=== PATIENT | male | born 1945 | race Caucasian/White ===

== ENCOUNTER 2017-11-04 01:16 | Emergency (ER) | payer MEDICARE ==
[2017-11-04 01:40] VITALS: BMI 24.9
[2017-11-04 01:42] VITALS: PULSE 63; RESP 16; TEMP 98.7; O2SAT 95
[2017-11-04] MEDS ORDERED: Sodium Chloride 0.9% 1,000 ML IV STA (02:34)
--- NOTE | 2017-11-04 03:44 | ED PDOC ---
Syncope/Near Syncope/Dizziness Time Seen by Provider: 11/04/17 02:10 Chief Complaint (Nursing): Dizziness/Lightheaded Chief Complaint (Provider): Dizziness/Lightheaded History Per: Patient History/Exam Limitations: no limitations Onset/Duration Of Symptoms: Days (x 4) Current Symptoms Are (Timing): Still Present Fall Associated With With Symptoms: No Additional Complaint(s): 72 year old male with a history of asthma presents to the ED with dizziness for the last 4 days. Patient describes it as a sense of generalized warmth that is affecting negatively affected his ability to sleep every night. He reports that he is very frustrated because he is unable to sleep. Patient states he is unaware of any underlying anxiety in his life and denies a history of insomnia. PMD none provided Past Medical History Reviewed: Historical Data Vital Signs: Last Vital Signs Temp 98.7 F 11/04/17 01:40 Pulse 63 11/04/17 01:40 Resp 16 11/04/17 01:40 BP 151/72 H 11/04/17 01:40 Pulse Ox 95 11/04/17 01:40 - Medical History PMH: Asthma, Bronchitis Denies: Arthritis, Atrial Fibrillation, CHF, Diabetes, HTN, Hypercholesterolemia, Seizures - Surgical History Surgical History: Hernia Repair Denies: CABG, Pacemaker - Family History Family History: States: Unknown Family Hx Denies: CAD - Immunization History Hx Tetanus Toxoid Vaccination: Yes Hx Influenza Vaccination: No Hx Pneumococcal Vaccination: No - Home Medications Home Medications: Ambulatory Orders Medication Instructions Recorded Albuterol HFA [Ventolin HFA 90 1 puff IH Q4 #1 inhaler 11/07/15 mcg/actuation (8 g)] Methylprednisolone [Medrol Dose 4 mg PO DAILY #21 mg 11/23/15 Pack (21 tabs)] hydrOXYzine Pamoate [Vistaril] 25 mg PO HS PRN #7 cap 11/04/17 - Allergies Allergies/Adverse Reactions: Allergies Allergy/AdvReac Type Severity Reaction Status Date / Time No Known Allergies Allergy Verified 11/04/17 01:40 Review of Systems ROS Statement: Except As Marked, All Systems Reviewed And Found Negative Neurological: Positive for: Dizziness Physical Exam - Reviewed Nursing Documentation Reviewed: Yes Vital Signs Reviewed: Yes - Physical Exam Appears: Positive for: Well, Non-toxic, No Acute Distress Head Exam: Positive for: ATRAUMATIC, NORMAL INSPECTION, NORMOCEPHALIC Skin: Positive for: Normal Color, Warm, DRY Eye Exam: Positive for: EOMI, Normal appearance, PERRL Neck: Positive for: Normal, Painless ROM. Negative for: Supple Cardiovascular/Chest: Positive for: Regular Rate, Rhythm Respiratory: Positive for: Normal Breath Sounds. Negative for: Respiratory Distress Gastrointestinal/Abdominal: Positive for: Normal Exam, Soft Extremity: Positive for: Normal ROM. Negative for: Deformity Neurologic/Psych: Positive for: Alert, Oriented. Negative for: Motor/Sensory Deficits - Laboratory Results Result Diagrams: 11/04/17 04:22 11/04/17 04:22 - ECG O2 Sat by Pulse Oximetry: 95 Medical Decision Making Medical Decision Making: Time: 02:33 Impression: Initial Plan --EKG --CMP --U dip --CBC --NS IV --UA Time: 05:00 --Labs reviewed and reveal no clinically significant abnormalities. Patient is stable for discharge home. Patient provided limited supply of Vistaril and encouraged to f/u with PCP. Return precautions provided ---- Scribe Attestation: Documented by Fabiana Henry, acting as a scribe for Cody Canales MD Provider Scribe Attestation: All medical record entries made by the Scribe were at my direction and personally dictated by me. I have reviewed the chart and agree that the record accurately reflects my personal performance of the history, physical exam, medical decision making, and the department course for this patient. I have also personally directed, reviewed, and agree with the discharge instructions and disposition. Disposition - Clinical Impression Clinical Impression: Insomnia - Patient ED Disposition Is Patient to be Admitted: No - Disposition Disposition: Routine/Home Disposition Time: 05:02 Condition: STABLE Prescriptions: hydrOXYzine Pamoate [Vistaril] 25 mg PO HS PRN #7 cap PRN Reason: for insomnia Instructions: Insomnia Forms: [employer]ani (Armenian) Print Language: FAROESE
[2017-11-04 04:30] LABS: BASO # 0.1 K/uL (0.0-0.2); EOS # 0.2 K/uL (0.0-0.7); EOS % 3.5 % (0.0-4.0); HEMOGLOBIN 13.7 g/dL (12.0-18.0); LYMPH # 1.9 K/uL (1.0-4.3); LYMPH % 30.8 % (20.0-40.0); MEAN CELL VOLUME 96.6 fl (80.0-94.0); MEAN CORPUSCULAR HEMOGLOBIN 32.7 pg (27.0-31.0); MEAN CORPUSCULAR HGB CONC 33.8 g/dL (33.0-37.0); MEAN PLATELET VOLUME 8.8 fl (7.2-11.7); MONO # 0.6 K/uL (0.0-0.8); MONO % 9.4 % (0.0-10.0); NEUT # 3.4 K/uL (1.8-7.0); NEUT % 55.3 % (50.0-75.0); NRBC % 0.2 % (0.0-0.0); RBC 4.2 Mil/uL (4.40-5.90); RED CELL DISTRIBUTION WIDTH 13.9 % (11.5-14.5); WHITE BLOOD COUNT 6.1 K/uL (4.8-10.8)
[2017-11-04 04:34] LABS: ALB/GLOB RATIO 1.5 (1.0-2.1); ALBUMIN 4.4 g/dL (3.5-5.0); ALT/SGPT 22 U/L (21-72); AST/SGOT 21 U/L (17-59); BLOOD UREA NITROGEN 18 mg/dl (9-20); CALCIUM 9.5 mg/dL (8.4-10.2); GFR AFRICAN-AMERICAN > 60; GFR NON-AFRICAN AMERICAN > 60
[2017-11-04 06:03] VITALS: BP 147/69
--- NOTE | 2017-11-06 13:52 | CARD ---
APPROVED REPORT Date of service: 11/04/2017 EKG Measurement Heart [id number] <Conclusion> Sinus bradycardia Incomplete right bundle branch block Left anterior fascicular block Septal infarct, age undetermined Abnormal ECG
== END 2017-11-04 04:59 | disposition home or self-care (01) ==
LOC: H.ER 01:16
DX: G47.00 Insomnia, unspecified (principal)
CPT/HCPCS: 80053; 82948; 85025; 93005; 99285; J7030

== ENCOUNTER 2017-11-13 01:08 | Emergency (ER) | payer MEDICARE ==
[2017-11-13 01:08] VITALS: BMI 24.9
[2017-11-13] MEDS ORDERED: Albuterol-Ipratrop 3 mg / 0.5 (3 ml) UD IH STA (02:02)
[2017-11-13] MEDS ORDERED: Albuterol-Ipratrop 3 mg / 0.5 (3 ml) UD ONE (02:06)
--- NOTE | 2017-11-13 02:30 | ED PDOC ---
HPI: Hypertension/Hypotension Time Seen by Provider: 11/13/17 01:22 Chief Complaint (Nursing): High Blood Pressure Chief Complaint (Provider): High Blood Pressure History Per: Patient History/Exam Limitations: no limitations Onset/Duration Of Symptoms: Hrs Current Symptoms Are (Timing): Still Present Additional Complaint(s): 72 y/o male presents to the ED complaining of high blood pressure. Patient states blood pressure has been fluctuating for the past for three days and would like to be evaluated. Patient has a PMHx of asthma and uses an inhaler for relief as well as having pneumonia in the past. Otherwise: (+) cough, (-) fever, (-) chest pain, (-) shortness of breath, (-) dizziness, (-) headache, (- ) diaphoresis, (-) N/V, (-) abdominal pain, (-) palpitations, (-) other complaints. Past Medical History Reviewed: Historical Data, Nursing Documentation, Vital Signs Vital Signs: Last Vital Signs Temp 98 F 11/13/17 01:17 Pulse 60 11/13/17 01:17 Resp 16 11/13/17 01:17 BP 164/87 H 11/13/17 01:17 Pulse Ox 96 11/13/17 01:17 - Medical History PMH: Asthma, Bronchitis Denies: Arthritis, Atrial Fibrillation, CHF, Diabetes, HTN, Hypercholesterolemia, Chronic Kidney Disease, Seizures - Surgical History Surgical History: Hernia Repair Denies: CABG, Pacemaker - Family History Family History: States: Unknown Family Hx Denies: CAD - Immunization History Hx Tetanus Toxoid Vaccination: Yes Hx Influenza Vaccination: No Hx Pneumococcal Vaccination: No - Home Medications Home Medications: Ambulatory Orders Medication Instructions Recorded Albuterol HFA [Ventolin HFA 90 1 puff IH Q4 #1 inhaler 11/07/15 mcg/actuation (8 g)] Methylprednisolone [Medrol Dose 4 mg PO DAILY #21 mg 11/23/15 Pack (21 tabs)] hydrOXYzine Pamoate [Vistaril] 25 mg PO HS PRN #7 cap 11/04/17 - Allergies Allergies/Adverse Reactions: Allergies Allergy/AdvReac Type Severity Reaction Status Date / Time No Known Allergies Allergy Verified 11/04/17 01:40 Review of Systems ROS Statement: Except As Marked, All Systems Reviewed And Found Negative Constitutional: Positive for: Other (high blood pressure) Physical Exam - Reviewed Nursing Documentation Reviewed: Yes Vital Signs Reviewed: Yes - Physical Exam Comments: GENERAL APPEARANCE: Patient is awake, alert, oriented x 3, in no acute distress. SKIN: Warm, dry; (-) cyanosis. EYES: (-) conjunctival pallor. ENMT: Mucous membranes moist. NECK: (-) tenderness, (-) stiffness, (-) lymphadenopathy, (-) JVD. CHEST AND RESPIRATORY: (-) rash, (-) chest wall tenderness. Lungs: (-) rales , (-) rhonchi, (+) scattered wheezes, (-) rub; breath sounds equal bilaterally. HEART AND CARDIOVASCULAR: (-) irregularity; (-) murmur, (-) gallop, (-) rub. ABDOMEN AND GI: Soft; (-) distention, (-) tenderness, (-) palpable pulsatile mass. EXTREMITIES: (-) deformity; (-) edema, (-) calf tenderness. (+) distal pulses. NEURO AND PSYCH: Mental status as above. Cranial nerves grossly intact; strength symmetric. - ECG O2 Sat by Pulse Oximetry: 96 (RA) Pulse Ox Interpretation: Normal Medical Decision Making Medical Decision Making: Previous medical records reviewed, patient was seen in this ED on 11/04/17 for dizziness, BP was 151/72, EKG showed SB 50 bpm, CBC / CMP was wnl. Time: 0203 Plan: -- CXR Two Views -- Albuterol 3 ml IH -- Nebulizer Treatment -- Peak Flow Pre/Post CXR : NAD, as read by KAYA EKG : SB at 55 bpm, no acute ST changes, no change since last EKG done on , as read by KAYA. On re-evaluation, patient reports improvement of symptoms, denies any chest pain , SOB, headache or dizziness. On exam, patient remains AAOx3, in no acute distress. Lungs clear to auscultation, cardiac RRR, repeat neuro exam shows no focal findings. Diagnostic results d/w the patient in great detail. Patient advised that he needs to have his bp repeated and followed up as an outpatient. Based on history, exam and diagnostic results, plan will be for outpatient follow up. Patient instructed to follow-up with the clinic in 1-2 days without fail. Return to the emergency room at any time for any new or worsening symptoms. Patient states he fully agrees with and understands discharge instructions. States that he agrees with the plan and disposition. Verbalized and repeated discharge instructions and plan. I have given the patient opportunity to ask any additional questions. Scribe Attestation: Documented by Lucio Shields acting as a scribe for Roxana Plata PA-C. Provider Scribe Attestation: All medical record entries made by the Scribe were at my direction and personally dictated by me. I have reviewed the chart and agree that the record accurately reflects my personal performance of the history, physical exam, medical decision making, and the department course for this patient. I have also personally directed, reviewed, and agree with the discharge instructions and disposition. Disposition - Clinical Impression Clinical Impression: Asthma, Elevated blood pressure reading - Patient ED Disposition Is Patient to be Admitted: No Counseled Patient/Family Regarding: Studies Performed, Diagnosis, Need For Followup - Disposition Referrals: [facility] [Outside] Disposition: Routine/Home Disposition Time: 03:00 Condition: STABLE Additional Instructions: Pedro por dejarnos atenderlo hoy. Usted fue tratado por asma, presin arterial elevada. La atencin mdica de emergencia que recibi hoy se dirigi a los sntomas agudos de presentacin. Regrese al Departamento de Emergencia en cualquier momento si los sntomas empeoran, no mejoran o si surge algn otro problema. Llame a christine de los mdicos / clnicas a los que tabares recomendado que se detallan en el formulario de Informacin de visita del paciente que se incluye en arevalo paquete de daron. Lleve todos los documentos que recibi al momento del daron junto con los medicamentos a arevalo visita de seguimiento. Nuestro tratamiento no puede reemplazar la atencin mdica en curso por parte de un proveedor de atenci n primaria (PCP) fuera del departamento de emergencias. Pedro por permitir que el equipo de [employer] sea parte de arevalo cuidado hoy. Instructions: Asthma in Adults, High Blood Pressure (DC), Hypotension (ED), Hypertension (ED) Forms: Advise Only (Ecuadorean) Print Language: FRENCH - PA / LATIN AMERICAN STUDIES PROFESSOR / Resident Statement MD/DO has reviewed & agrees with the documentation as recorded.
[2017-11-13 04:05] VITALS: BP 152/76; PULSE 62; RESP 18; TEMP 97.9; O2SAT 98
--- NOTE | 2017-11-13 08:32 | RAD ---
Date of service: 11/13/2017 HISTORY: cough COMPARISON: Chest radiographs 12/29/2014. TECHNIQUE: Chest PA and lateral FINDINGS: LUNGS: No active pulmonary disease. PLEURA: No significant pleural effusion identified. No pneumothorax apparent. CARDIOVASCULAR: Normal. OSSEOUS STRUCTURES: No significant abnormalities. VISUALIZED UPPER ABDOMEN: Normal. OTHER FINDINGS: None. IMPRESSION: No interval acute cardiopulmonary disease appreciated.
== END 2017-11-13 04:05 | disposition home or self-care (01) ==
LOC: H.ER 01:08
DX: I10 Essential (primary) hypertension (principal); J45.909 Unspecified asthma, uncomplicated